=== PATIENT | female | born 1975 | race African-American/Black ===

== ENCOUNTER 2020-08-09 14:52 | Emergency (ER) | payer OTHER ==
[2020-08-09 15:24] VITALS: BP 122/61; PULSE 69; TEMP 97.7; BMI 34.9
[2020-08-09 16:58] LABS: BASO % 0.5 % (0-2.0); EOS % 1.6 % (0-4.5); HEMATOCRIT 33.3 % (32.4-45.2); HEMOGLOBIN 10.8 GM/dL (10.7-15.3); LYMPH % 33.7 % (8-40); MCH 25.8 pg (25.7-33.7); MCHC 32.3 g/dl (32.0-36.0); MEAN CELL VOLUME 79.8 fl (80-96); MEAN PLT VOLUME 7.6 fl (7.5-11.1); MONO % 11.6 % (3.8-10.2); NEUT % 52.6 % (42.8-82.8); PLATELET COUNT 343 K/MM3 (134-434); RBC 4.17 M/mm3 (3.60-5.2); WHITE BLOOD COUNT 4.8 K/mm3 (4.0-10.0)
[2020-08-09 17:20] LABS: CHLORIDE 107 mmol/L (98-107); POTASSIUM 4.1 mmol/L (3.5-5.1); SODIUM 140 mmol/L (136-145)
[2020-08-09 17:22] LABS: CALCIUM 8.6 mg/dL (8.5-10.1)
[2020-08-09 17:23] LABS: ANION GAP 5 MMOL/L (8-16); BLOOD UREA NITROGEN 16.5 mg/dL (7-18); CO2 28 mmol/L (21-32); GLUCOSE,RANDOM 103 mg/dL (74-106)
[2020-08-09 17:26] LABS: BILIRUBIN,TOTAL 0.2 mg/dL (0.2-1); CREATININE 0.8 mg/dL (0.55-1.3); SGOT/AST 19 U/L (15-37); SGPT/ALT 32 U/L (13-61); TOT PROT 7.3 g/dl (6.4-8.2)
[2020-08-09 17:28] LABS: ALK PHOS 89 U/L (45-117)
== END 2020-08-09 21:47 | disposition home or self-care (01) ==
LOC: JER 14:52
DX: J18.9 Pneumonia, unspecified organism (principal)
CPT/HCPCS: 36415; 71046-TC-FY; 71275-TC; 80053; 82550; 84484; 84703; 85025; 85379; 93005; 93010; 99285-25; Q9967